=== PATIENT | male | born 1965 | race Caucasian/White ===

== ENCOUNTER 2022-04-23 12:25 | Emergency (ER) | payer MEDICAID ==
[~2022-04-23] VITALS: Ht 175.3 cm; Wt 87.2 kg
[2022-04-23 12:39] VITALS: BP 121/80
[2022-04-23 12:45] VITALS: BP 119/79
[2022-04-23 13:00] VITALS: BP 119/75
[2022-04-23 13:14] LABS: HEMATOCRIT 41.5 % (39.0-50.0); HEMOGLOBIN 13.6 g/dl (14.0-18.0); IMMATURE GRANULOCYTES 0.2 % (0.0-5.0); MEAN CELL VOLUME 85.2 fL CALC (80.0-100.0); MEAN CORPUSCULAR HGB 27.9 pG CALC (26.0-32.0); MEAN CORPUSCULAR HGB CONC 32.8 g/dL CAL (32.0-36.0); NEUT# 3.42 thou/uL (1.82-7.42); RED BLOOD COUNT 4.87 mill/uL (4.70-6.10); RED CELL DISTRI WIDTH 15.1 % (11.5-15.5)
[2022-04-23] MEDS ORDERED: FENTANYL50 MCG/HR TD (13:14)
[2022-04-23 13:15] VITALS: BP 120/81
[2022-04-23] MEDS ORDERED: SYMBICORT1 AE1 IN (13:15)
[2022-04-23] MEDS ORDERED: LEVEMIR100 UNIT SC (13:15)
[2022-04-23] MEDS ORDERED: GABAPENTIN600 MG PO (13:16)
[2022-04-23] MEDS ORDERED: TOPROL XL50 MG PO (13:17)
[2022-04-23] MEDS ORDERED: DOXYCYC MONO100 M3 PO (13:17)
[2022-04-23] MEDS ORDERED: ASPIRIN81 MG PO (13:18)
[2022-04-23] MEDS ORDERED: DILAUDID2 MG PO (13:18)
[2022-04-23] MEDS ORDERED: MULTIVITAMIN1 TA1 (13:18)
[2022-04-23] MEDS ORDERED: SPIRONOLACTONE50 MG PO (13:19)
[2022-04-23] MEDS ORDERED: FAMOTIDINE20 M1 PO (13:19)
[2022-04-23] MEDS ORDERED: BUMETANIDE1 MG PO (13:19)
[2022-04-23 13:20] LABS: ALBUMIN 4.2 g/dL (3.2-5.0); ALKALINE PHOSPHATASE 164 u/l (38-126); ANION GAP 13 (6-22 (CALC)); BILIRUBIN, TOTAL 0.6 mg/dL (0.0-1.4); BUN 34 mg/dL (9-20); BUN/CREATININE RATIO 27 (12-20 (CALC)); CARBON DIOXIDE 25 mmol/l (22-30); CHLORIDE 104 mmol/l (95-108); CREATININE 1.3 mg/dL (0.7-1.3); GFR FOR AFR.AMER. > 60 ML/MIN (>=60 (CALC)); GFR OTHER RACES 57 ML/MIN (>=60 (CALC)); LIPASE 106 u/l (23-300); SGOT/AST 43 u/l (17-59); SODIUM 137 mmol/l (137-146); TOTAL PROTEIN 8.3 g/dL (6.3-8.2)
[2022-04-23] MEDS ORDERED: VITAMIN B-12500 MCG PO (13:20)
[2022-04-23] MEDS ORDERED: FEROSUL325 MG (13:20)
[2022-04-23] MEDS ORDERED: TRAMADOL HYDROC50 M1 (13:21)
[2022-04-23] MEDS ORDERED: TRAZODONE50 MG PO (13:21)
[2022-04-23 13:30] VITALS: BP 115/82
[2022-04-23 13:44] LABS: ACT PARTIAL THROMBO TIME 25.9 SECONDS (20.0-32.5); PROTHROMBIN TIME 10.1 SECONDS (9.0-12.5)
== END 2022-04-23 15:21 | disposition home or self-care (01) ==
LOC: ED 12:25
DX: R22.2 Localized swelling, mass and lump, trunk (principal); I12.0 Hypertensive chronic kidney disease with stage 5 chronic kidney disease or end stage renal disease; E11.22 Type 2 diabetes mellitus with diabetic chronic kidney disease; N18.6 End stage renal disease; Z86.14 Personal history of Methicillin resistant Staphylococcus aureus infection; Z95.2 Presence of prosthetic heart valve; Z99.2 Dependence on renal dialysis; Z79.4 Long term (current) use of insulin